=== PATIENT | female | born 1990 | race Caucasian/White ===

== ENCOUNTER 2016-11-26 23:49 | Emergency (ER) | payer SELFPAY | END 2016-11-27 02:30 | disposition left against medical advice (07) | LOC: ER1 23:49 | DX: Z53.21 Procedure and treatment not carried out due to patient leaving prior to being seen by health care provider (principal) ==

== ENCOUNTER → 2016-12-20 | Outpatient (CLI) | payer OTHER | LOC: LAB 08:55 | DX: R00.2 Palpitations (principal) | CPT/HCPCS: 36415; 84439; 84443 ==

== ENCOUNTER → 2016-12-28 | Outpatient (CLI) | payer OTHER | LOC: KOH-I 14:31 | DX: E04.9 Nontoxic goiter, unspecified (principal) | CPT/HCPCS: 76536 ==

== ENCOUNTER 2020-10-06 16:17 | Inpatient (IN) | payer BC ==
[~2020-10-06 16:17] MED LIST: TRANSDERM-SCOP1 EACH TOP
[2020-10-06 16:46] LABS: HEMOGLOBIN 10.5 gm/dl (12.3-15.3); RED BLOOD COUNT 3.52 M/UL (4.00-5.10); WHITE BLOOD COUNT 8.2 K/UL (4.5-11.0)
[2020-10-08 05:29] LABS: HEMOGLOBIN 6.6 gm/dl (12.3-15.3)
[2020-10-08] MEDS ORDERED: ENDOCET 5-3251 EACH PO (10:25)
[2020-10-08] MEDS ORDERED: [UNRECOGNIZED DRUG - OTHER] PO (10:25)
[2020-10-08] MEDS ORDERED: IBUPROFEN800 MG PO (10:25)
[2020-10-08] MEDS ORDERED: SOF-LAX100 MG PO (10:25)
[2020-10-09 07:00] LABS: HEMOGLOBIN 5.7 gm/dl (12.3-15.3)
[2020-10-10 08:34] LABS: HEMOGLOBIN 7.6 gm/dl (12.3-15.3); RED BLOOD COUNT 2.58 M/UL (4.00-5.10); WHITE BLOOD COUNT 10.1 K/UL (4.5-11.0)
[2020-10-10] MEDS ORDERED: PREDNISONE 20 M20 MG PO ×2 (15:27→16:11)
[2020-10-10] MEDS ORDERED: LOTRISONE CREAM15 GM EXT (16:11)
== END 2020-10-10 16:43 | disposition home or self-care (01) | DRG 787 ==
LOC: GENOP 16:17 → OB 16:27
PROVIDERS: Obstetrics & Gynecology; ADMIT Obstetrics & Gynecology
PROC: 0U7C7ZZ Dilation of Cervix, Via Natural or Artificial Opening (ICD-10-PCS; 2020-10-06)
PROC: 3E0234Z Introduction of Serum, Toxoid and Vaccine into Muscle, Percutaneous Approach (ICD-10-PCS; 2020-10-07)
PROC: 10907ZC Drainage of Amniotic Fluid, Therapeutic from Products of Conception, Via Natural or Artificial Opening (ICD-10-PCS; 2020-10-07)
PROC: 3E033VJ Introduction of Other Hormone into Peripheral Vein, Percutaneous Approach (ICD-10-PCS; 2020-10-07)
PROC: 6A550ZT Pheresis of Cord Blood Stem Cells, Single (ICD-10-PCS; 2020-10-07)
PROC: 10D00Z1 Extraction of Products of Conception, Low, Open Approach (ICD-10-PCS; principal; 2020-10-07 16:10)
PROC: 30233N1 Transfusion of Nonautologous Red Blood Cells into Peripheral Vein, Percutaneous Approach (ICD-10-PCS; 2020-10-09)
DX: O13.4 Gestational [pregnancy-induced] hypertension without significant proteinuria, complicating childbirth (principal); D62 Acute posthemorrhagic anemia; E72.12 Methylenetetrahydrofolate reductase deficiency; O98.82 Other maternal infectious and parasitic diseases complicating childbirth; Z20.822 Contact with and (suspected) exposure to COVID-19; Z3A.38 38 weeks gestation of pregnancy; Z37.0 Single live birth; O99.02 Anemia complicating childbirth; O75.89 Other specified complications of labor and delivery; L25.9 Unspecified contact dermatitis, unspecified cause; O99.214 Obesity complicating childbirth; O99.344 Other mental disorders complicating childbirth; F32.9 Major depressive disorder, single episode, unspecified; F90.9 Attention-deficit hyperactivity disorder, unspecified type; O99.284 Endocrine, nutritional and metabolic diseases complicating childbirth; B95.1 Streptococcus, group B, as the cause of diseases classified elsewhere; Z23 Encounter for immunization; O62.1 Secondary uterine inertia; O69.81X0 Labor and delivery complicated by cord around neck, without compression, not applicable or unspecified; F41.1 Generalized anxiety disorder; O72.1 Other immediate postpartum hemorrhage
CPT/HCPCS: 36415; 36430; 51702; 81001; 85014; 85018; 85025; 86850; 86900; 86901; 86920; 87040; 90715; C9113; J0690; J1170; J1885; J2210; J2274; J2405; J2550; J2590; J2795; J3010; J7030; J7120; P9016; U0002

== ENCOUNTER → 2021-12-06 | Outpatient (CLI) | payer BC ==
[~2021-12-06] MED LIST changes: +ENDOCET 5-3251 EACH PO; +IBUPROFEN800 MG PO; +LOTRISONE CREAM15 GM EXT; +PREDNISONE 20 M20 MG PO; +SOF-LAX100 MG PO; +[UNRECOGNIZED DRUG - OTHER] PO
== END ==
LOC: KOH-I 10:05
DX: R50.9 Fever, unspecified (principal)
CPT/HCPCS: 71046